=== PATIENT | male | born 1990 | race Caucasian/White ===

== ENCOUNTER 2016-05-26 17:24 | Inpatient (IN) | payer SELFPAY ==
[~2016-05-26] VITALS: Ht 180.3 cm; Wt 75.1 kg
[~2016-05-26 17:24] MED LIST: CATAPRES0.1 MG PO; CLONIDINE HCL0.1 MG PO; TRAZODONE HCL100 MG PO; TRAZODONE HCL50 MG PO; ZOFRAN4 MG PO
[2016-05-26 19:12] LABS: HEMATOCRIT 44.5 % (38.0-50.0); MCH 29.7 PG (29.0-34.0); MCHC 35.1 G/DL (30.0-36.0); MCV 84.8 FL (86-99); MEAN PLAT.VOLUME 10.2 uM^3 (9.0-12.4); PLATELET COUNT 265 K/uL (156-360); RBC DIS.WIDTH-CV 12.4 % (11.8-14.6); RBC DIS.WIDTH-SD 37.9 % (39-53); RED BLOOD COUNT 5.25 M/uL (4.00-5.50); WHITE BLOOD COUNT 6.2 K/uL (4.1-10.2)
[2016-05-26 19:19] LABS: CHLORIDE 105 mEq/L (99-109); POTASSIUM 4.7 mEq/L (3.7-5.4)
[2016-05-26 19:20] LABS: SODIUM 141 mEq/L (136-147)
[2016-05-26 19:21] LABS: GLUCOSE 94 mg/dL (70-99)
[2016-05-26 19:23] LABS: ANION GAP 12 MEQ/L (2-14)
[2016-05-26 19:24] LABS: SERUM ETHYL ALCOHOL < 10 mg/dL
[2016-05-26 19:25] LABS: GFR ESTIMATE (CALCULATED) > 59 mL/min/
[2016-05-26 19:26] LABS: UREA NITROGEN (BUN) 12 mg/dL (9-23)
[2016-05-26 21:07] LABS: AMPHETAMINE NEGATIVE (500 ng/mL); BARBITURATES NEGATIVE (200 ng/mL); BENZODIAZEPINES PRESUMPTIVE POSITIVE (150 ng/mL); COCAINE NEGATIVE (150 ng/mL); INTERNAL CONTROLS VALID? YES; METHADONE NEGATIVE (200 ng/mL); METHAMPHETAMINE PRESUMPTIVE POSITIVE (500 ng/mL); OPIATES (MORPHINE) PRESUMPTIVE POSITIVE (100 ng/mL); OXYCODONE NEGATIVE (100 ng/mL); PHENCYCLIDINE NEGATIVE (25 ng/mL); PROPOXYPHENE NEGATIVE (300 ng/mL); THC CANNABINOIDS PRESUMPTIVE POSITIVE (50 ng/mL); TRICYCLIC ANTIDEPRESSANTS NEGATIVE (300 ng/mL)
[2016-05-26 21:08] LABS: ADD MEDTOX COMMENT Y
[2016-05-26 21:46] LABS: BENZODIAZEPINES, URINE SCREEN POSITIVE (200 ng/mL)
[2016-05-26 22:50] VITALS: BP 117/69
[2016-05-27 07:45] VITALS: BP 110/57
== END 2016-05-27 12:29 | disposition home or self-care (01) | DRG 882 ==
LOC: EME 17:24 → EDOF 19:48 → 1WEST 19:48
PROVIDERS: Emergency Medicine
DX: F43.20 Adjustment disorder, unspecified (principal); R45.851 Suicidal ideations; F11.90 Opioid use, unspecified, uncomplicated; F12.90 Cannabis use, unspecified, uncomplicated; Z59.0 Homelessness; F17.200 Nicotine dependence, unspecified, uncomplicated
CPT/HCPCS: 80048; 84999; 85027; 90837; 99281; 99285; G0480

== ENCOUNTER 2016-10-06 21:24 | Emergency (ER) | payer OTHER ==
[~2016-10-06] VITALS: Ht 180.3 cm; Wt 75.9 kg
[2016-10-06] MEDS ORDERED: NARCAN4 MG NS (22:34)
[2016-10-06 23:11] VITALS: BP 130/83
== END 2016-10-06 23:11 | disposition home or self-care (01) ==
LOC: EME 21:24
DX: T40.1X1A Poisoning by heroin, accidental (unintentional), initial encounter (principal); F11.20 Opioid dependence, uncomplicated; F17.200 Nicotine dependence, unspecified, uncomplicated; Z71.6 Tobacco abuse counseling
CPT/HCPCS: 99281; 99284; J2310

== ENCOUNTER 2016-10-08 14:14 | Emergency (ER) | payer OTHER ==
[~2016-10-08] VITALS: Ht 180.3 cm; Wt 76.9 kg
[~2016-10-08 14:14] MED LIST changes: +NARCAN4 MG NS
[2016-10-08] MEDS ORDERED: VISTARIL50 MG PO (15:20)
[2016-10-08 15:23] VITALS: BP 127/97
== END 2016-10-08 15:36 | disposition home or self-care (01) ==
LOC: EME → EDBD 14:14 → EME 15:36
DX: Z04.1 Encounter for examination and observation following transport accident (principal); F43.8 Other reactions to severe stress; F41.9 Anxiety disorder, unspecified; F17.200 Nicotine dependence, unspecified, uncomplicated
CPT/HCPCS: 81003; 99281; 99284; Q0177